=== PATIENT | male | born 1980 | race Two or more races ===

== ENCOUNTER → 2019-04-29 06:00 | Outpatient (CLI) | payer OTHER | END | disposition home or self-care (01) | LOC: EKG 06:00 → ADM 05-06 10:30 → CIR.AMB 05-06 10:30 → EDSTATUS 05-06 10:30 → ADM 05-09 10:30 | DX: S83.242A Other tear of medial meniscus, current injury, left knee, initial encounter (principal); M25.562 Pain in left knee; Z01.818 Encounter for other preprocedural examination ==